=== PATIENT | male | born 1990 | race Caucasian/White ===

== ENCOUNTER 2016-11-23 12:07 | Emergency (ER) | payer OTHER ==
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
--- NOTE | 2016-11-23 14:08 | ED ORDER SUMMARY ---
..... Patient: GLENN BLACK OrderSheet [facility] VisitID: [id number] [place] [address] 26y, M Registration Date/Time: 11/23/2016 ORDER SHEET Weight: 92.0 kg (stated) Allergies: No Known Drug Allergy GENERAL ORDERS: Hand 3 or 4V Left Urgent (12:54 11/23/2016 Veto Dash) (Ack 13:01 LTapper) (13:09 Shamika HerediaNAmena) Hand 3 or 4V Right Urgent (12:54 11/23/2016 Veto Dash) (Susan 13:01 LTapper) (13:09 Shamika Gary) Splint (UE) (Left, Right) (Ulnar Gutter) (Short Arm) (14:14 11/23/2016 Alejandra verbal order read back to Veto Dash) (14:15 Alejandra) MEDICATION ORDERS: Motrin PO 800 mg (NOW) (12:54 11/23/2016 Veto Dash) (12:58 Azalia Gary) IV FLUIDS: ORDER SHEET NOTES: [Electronically signed by Carroll Kaminski Dr. (14:13 11/23/2016)] [Electronically signed by Michael Wen R.N. (14:53 11/23/2016)] [Electronically locked/signed by Michael Wen R.N. (14:53 11/23/2016)]
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
--- NOTE | 2016-11-23 14:08 | ED ORDER SUMMARY ---
..... Patient: GLENN BLACK OrderSheet [facility] VisitID: [id number] [place] [address] 26y, M Registration Date/Time: 11/23/2016 ORDER SHEET Weight: 92.0 kg (stated) Allergies: No Known Drug Allergy GENERAL ORDERS: Hand 3 or 4V Left Urgent (12:54 11/23/2016 Veto Dash) (Ack 13:01 LTapper) (13:09 Shamika HerediaNAmena) Hand 3 or 4V Right Urgent (12:54 11/23/2016 Veto Dash) (Susan 13:01 LTapper) (13:09 Shamika Gary) Splint (UE) (Left, Right) (Ulnar Gutter) (Short Arm) (14:14 11/23/2016 Alejandra verbal order read back to Veto Dash) (14:15 Alejandra) MEDICATION ORDERS: Motrin PO 800 mg (NOW) (12:54 11/23/2016 Veto Dash) (12:58 Azalia Gary) IV FLUIDS: ORDER SHEET NOTES: [Electronically signed by Carroll Kaminski Dr. (14:13 11/23/2016)] [Electronically signed by Michael Wen R.N. (14:53 11/23/2016)] [Electronically locked/signed by Michael Wen R.N. (14:53 11/23/2016)]
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
--- NOTE | 2016-11-23 14:54 | ED MAR SUMMARY ---
..... Medication Administration Record [address] [place] [address] Patient: GLENN BLACK Visit ID: [id number] 26y, M Weight: 92.0 kg Height/Length: 74 in BMI: 26.1 ALLERGIES: No Known Drug Allergy Given 12:48 11/23/2016 Michael Wen R.N. Medication Administered: MOTRIN [PO], Dose: 800 mg Tablets PO. Medication Ordered: Motrin PO 800 mg (NOW).
--- NOTE | 2016-11-23 14:54 | ED MED RECONCILIATION SUMMARY ---
Patient: GLENN BLACK Medication Reconciliation Report [facility] VisitID: [id number] [address] [place] [address] 26y, M Registration Date/Time: 11/23/2016 Weight: 92.0 kg Height/Length: 74 in. BMI: 26.1 ALLERGIES: No Known Drug Allergy The patient's Home Medications are listed below: NONE. The source(s) of the original Home Medication information: patient The following Medications were given to the patient in the Emergency Department: Motrin [PO] PO 800 mg, administered: 11/23/2016 12:48:00 PM The following Medications were prescribed to the patient: Hydrocodone/APAP 5mg / 325mg: take 1 orally every 6 hours as needed for pain. Dispense fifteen (15). No refill. -- Carroll Kaminski Dr. Diclofenac 50 mg tablets: take 1 tablet orally every 8 hours as needed for pain or stiffness. Dispense thirty (30). No refill. -- Carroll Kaminski Dr.
--- NOTE | 2016-11-23 14:54 | ED MED RECONCILIATION SUMMARY ---
Patient: GLENN BLACK Medication Reconciliation Report [facility] VisitID: [id number] [address] [place] [address] 26y, M Registration Date/Time: 11/23/2016 Weight: 92.0 kg Height/Length: 74 in. BMI: 26.1 ALLERGIES: No Known Drug Allergy The patient's Home Medications are listed below: NONE. The source(s) of the original Home Medication information: patient The following Medications were given to the patient in the Emergency Department: Motrin [PO] PO 800 mg, administered: 11/23/2016 12:48:00 PM The following Medications were prescribed to the patient: Hydrocodone/APAP 5mg / 325mg: take 1 orally every 6 hours as needed for pain. Dispense fifteen (15). No refill. -- Carroll Kaminski Dr. Diclofenac 50 mg tablets: take 1 tablet orally every 8 hours as needed for pain or stiffness. Dispense thirty (30). No refill. -- Carroll Kaminski Dr.
--- NOTE | 2016-11-23 14:54 | ED MAR SUMMARY ---
..... Medication Administration Record [facility] [address] [place] [address] Patient: GLENN BLACK Visit ID: [id number] 26y, M Weight: 92.0 kg Height/Length: 74 in BMI: 26.1 ALLERGIES: No Known Drug Allergy Given 12:48 11/23/2016 Michael Wen R.N. Medication Administered: MOTRIN [PO], Dose: 800 mg Tablets PO. Medication Ordered: Motrin PO 800 mg (NOW).
--- NOTE | 2016-11-23 14:54 | ED DISCHARGE INSTRUCTIONS ---
Patient: GLENN BLACK General Instructions [facility] VisitID: [id number] [address], [place] [address] 26y, M Registration Date/Time: 11/23/2016 Closed displaced and moderately angulated fracture of the neck of the fifth metacarpal of the left hand. Closed displaced and moderately angulated fracture of the shaft of the fourth metacarpal and shaft of the fifth metacarpal of the right hand. INSTRUCTIONS Wear fiberglass splint until released. Limit use of your right and left hand until released. Prescription Medications: Hydrocodone/APAP 5mg / 325mg: take 1 orally every 6 hours as needed for pain. Dispense fifteen (15). No refill. Diclofenac 50 mg tablets: take 1 tablet orally every 8 hours as needed for pain or stiffness. Dispense thirty (30). No refill. Follow-up with: [facility], , [address], [place], [id number] Follow up in about three days. Call for an appointment. ADDITIONAL INFORMATION Boxer Fracture You have a fracture (break) of one of the bones in your hand. This causes pain, swelling and sometimes bruising. This injury is treated with a splint or cast. It takes about 4-6 weeks to heal. Surgery may be needed for severe injuries. After the bone has healed, it is common for one knuckle to be slightly lower than the others, even if the bone was "set". This may be seen only when you make a fist and will not affect hand function. Home Care: 1) Keep your arm elevated to reduce pain and swelling. When sitting or lying down elevate your arm above the level of your heart. You can do this by placing your arm on a pillow that rests on your chest or on a pillow at your side. This is most important during the first 48 hours after injury. 2) Apply an ice pack (ice cubes in a plastic bag, wrapped in a towel) over the injured area for 20 minutes every 1-2 hours the first day. You can place the ice pack inside the sling and directly over the splint/cast. Continue with ice packs 3-4 times a day for the next two days, then as needed for the relief of pain and swelling. 3) Keep the cast/splint completely dry at all times. Bathe with your cast/splint out of the water, protected with a large plastic bag, rubber-banded at the top end. If a fiberglass cast/splint gets wet, you can dry it with a hair-dryer. 4) You may use acetaminophen (Tylenol) or ibuprofen (Motrin, Advil) to control pain, unless another pain medicine was prescribed. [ NOTE : If you have chronic liver or kidney disease or ever had a stomach ulcer or GI bleeding, talk with your doctor before using these medicines.] 5) If you cut, punctured or scraped your hand during this injury, there is a risk of infection. Watch for signs of infection listed below. Finish any antibiotics prescribed. Follow Up With Your Doctor Within One Week To Be Sure The Bone Is Healing Properly, Or As Advised By Our Staff. [NOTE: A radiologist will review any X-rays that were taken. We will notify you of any new findings that may affect your care.] Get Prompt Medical Attention If Any Of The Following Occur: The cast or splint becomes wet or soft Increased tightness or pain under the cast or splint Fingers become swollen, cold, blue, numb or tingly Bad odor from the splint/cast or you see wound fluid staining the cast Signs of infection: Fever, redness, warmth, swelling or drainage from the wound Fever of 100.4F (38C) or higher, or as directed by your healthcare provider Splint Care, Fiberglass The following will help you care for your splint: It will take up totwo hours for your fiber glass splint to fully harden; therefore, do notapply any pressure on it during that time or else it may break. To prevent swelling under the splint, for thefirst 48 hours: If the splint is on yourarm, keep it in a sling or raised to shoulder level when sitting or standing; rest it on your chest or on a pillow at your side when lying down. If the splint is on yourfoot, keep it propped up above the level of your waist when sitting or lying. Avoid crutch walking as much as possible during this time. Keep the splint/cast dry at all times. Bathe with your splint/cast well out of the water, protected with a large plastic bag, rubber-banded at the top end. If a fiberglass cast or splint gets wet, you can dry it with a hair-dryer. Follow-up care Follow up with your doctor or this facility as advised. When to seek medical care Get prompt medical attention if any of the following occur: Bad odor from the splint or wound-fluid stains the splint The splint cracks or remains wet over 24 hours Increasing tightness or pressure under the splint Fingers or toes become swollen, cold, blue, numb or tingly Increased pain under the splint Hydrocodone Bitartrate, Acetaminophen Oral tablet What is this medicine? ACETAMINOPHEN; HYDROCODONE (a set a KWAN keerthi fen; shiraz droe KOE done) is a pain reliever. It is used to treat mild to moderate pain. How should I use this medicine? Take this medicine by mouth. Swallow it with a full glass of water. Follow the directions on the prescription label. If the medicine upsets your stomach, take the medicine with food or milk. Do not take more than you are told to take. Talk to your hot cell technician regarding the use of this medicine in children. This medicine is not approved for use in children. What side effects may I notice from receiving this medicine? Side effects that you should report to your doctor or health caretaker grounds as soon as possible: allergic reactions like skin rash, itching or hives, swelling of the face, lips, or tongue breathing problems confusion feeling faint or lightheaded, falls stomach pain yellowing of the eyes or skin Side effects that usually do not require medical attention (report to your doctor or health caretaker grounds if they continue or are bothersome): nausea, vomiting stomach upset What may interact with this medicine? alcohol antihistamines isoniazid medicines for depression, anxiety, or psychotic disturbances medicines for sleep muscle relaxants naltrexone narcotic medicines (opiates) for pain phenobarbital ritonavir tramadol What if I miss a dose? If you miss a dose, take it as soon as you can. If it is almost time for your next dose, take only that dose. Do not take double or extra doses. Where should I keep my medicine? Keep out of the reach of children. This medicine can be abused. Keep your medicine in a safe place to protect it from theft. Do not share this medicine with anyone. Selling or giving away this medicine is dangerous and against the law. Store at room temperature between 15 and 30 degrees C (59 and 86 degrees F). Protect from light. Keep container tightly closed. Throw away any unused medicine after the expiration date. Discard unused medicine and used packaging carefully. Pets and children can be harmed if they find used or lost packages. What should I tell my health care provider before I take this medicine? They need to know if you have any of these conditions: brain tumor Crohn's disease, inflammatory bowel disease, or ulcerative colitis drink more than 3 alcohol-containing drinks per day drug abuse or addiction head injury heart or circulation problems kidney disease or problems going to the bathroom liver disease lung disease, asthma, or breathing problems an unusual or allergic reaction to acetaminophen, hydrocodone, other opioid analgesics, other medicines, foods, dyes, or preservatives or trying to get breast-feeding What should I watch for while using this medicine? Tell your doctor or health caretaker grounds if your pain does not go away, if it gets worse, or if you have new or a different type of pain. You may develop tolerance to the medicine. Tolerance means that you will need a higher dose of the medicine for pain relief. Tolerance is normal and is expected if you take the medicine for a long time. Do not suddenly stop taking your medicine because you may develop a severe reaction. Your body becomes used to the medicine. This does NOT mean you are addicted. Addiction is a behavior related to getting and using a drug for a non-medical reason. If you have pain, you have a medical reason to take pain medicine. Your doctor will tell you how much medicine to take. If your doctor wants you to stop the medicine, the dose will be slowly lowered over time to avoid any side effects. You may get drowsy or dizzy when you first start taking the medicine or change doses. Do not drive, use machinery, or do anything that may be dangerous until you know how the medicine affects you. Stand or sit up slowly. There are different types of narcotic medicines (opiates) for pain. If you take more than one type at the same time, you may have more side effects. Give your health care provider a list of all medicines you use. Your doctor will tell you how much medicine to take. Do not take more medicine than directed. Call emergency for help if you have problems breathing. The medicine will cause constipation. Try to have a bowel movement at least every 2 to 3 days. If you do not have a bowel movement for 3 days, call your doctor or health caretaker grounds. Too much acetaminophen can be very dangerous. Do not take Tylenol (acetaminophen) or medicines that contain acetaminophen with this medicine. Many non-prescription medicines contain acetaminophen. Always read the labels carefully. You have been given the following additional information: Fracture, Boxer's Splint Care, Fiberglass Hydrocodone Bitartrate, Acetaminophen Oral tablet Limit use of your right and left hand until released. (Electronically signed by Carroll Kaminski Dr. 11/23/2016 14:13)
--- NOTE | 2016-11-23 14:54 | ED DISCHARGE INSTRUCTIONS ---
Patient: GLENN BLACK General Instructions [facility] VisitID: [id number] [address], [place] [address] 26y, M Registration Date/Time: 11/23/2016 Closed displaced and moderately angulated fracture of the neck of the fifth metacarpal of the left hand. Closed displaced and moderately angulated fracture of the shaft of the fourth metacarpal and shaft of the fifth metacarpal of the right hand. INSTRUCTIONS Wear fiberglass splint until released. Limit use of your right and left hand until released. Prescription Medications: Hydrocodone/APAP 5mg / 325mg: take 1 orally every 6 hours as needed for pain. Dispense fifteen (15). No refill. Diclofenac 50 mg tablets: take 1 tablet orally every 8 hours as needed for pain or stiffness. Dispense thirty (30). No refill. Follow-up with: [facility], , [address], [place], [id number] Follow up in about three days. Call for an appointment. ADDITIONAL INFORMATION Boxer Fracture You have a fracture (break) of one of the bones in your hand. This causes pain, swelling and sometimes bruising. This injury is treated with a splint or cast. It takes about 4-6 weeks to heal. Surgery may be needed for severe injuries. After the bone has healed, it is common for one knuckle to be slightly lower than the others, even if the bone was "set". This may be seen only when you make a fist and will not affect hand function. Home Care: 1) Keep your arm elevated to reduce pain and swelling. When sitting or lying down elevate your arm above the level of your heart. You can do this by placing your arm on a pillow that rests on your chest or on a pillow at your side. This is most important during the first 48 hours after injury. 2) Apply an ice pack (ice cubes in a plastic bag, wrapped in a towel) over the injured area for 20 minutes every 1-2 hours the first day. You can place the ice pack inside the sling and directly over the splint/cast. Continue with ice packs 3-4 times a day for the next two days, then as needed for the relief of pain and swelling. 3) Keep the cast/splint completely dry at all times. Bathe with your cast/splint out of the water, protected with a large plastic bag, rubber-banded at the top end. If a fiberglass cast/splint gets wet, you can dry it with a hair-dryer. 4) You may use acetaminophen (Tylenol) or ibuprofen (Motrin, Advil) to control pain, unless another pain medicine was prescribed. [ NOTE : If you have chronic liver or kidney disease or ever had a stomach ulcer or GI bleeding, talk with your doctor before using these medicines.] 5) If you cut, punctured or scraped your hand during this injury, there is a risk of infection. Watch for signs of infection listed below. Finish any antibiotics prescribed. Follow Up With Your Doctor Within One Week To Be Sure The Bone Is Healing Properly, Or As Advised By Our Staff. [NOTE: A radiologist will review any X-rays that were taken. We will notify you of any new findings that may affect your care.] Get Prompt Medical Attention If Any Of The Following Occur: The cast or splint becomes wet or soft Increased tightness or pain under the cast or splint Fingers become swollen, cold, blue, numb or tingly Bad odor from the splint/cast or you see wound fluid staining the cast Signs of infection: Fever, redness, warmth, swelling or drainage from the wound Fever of 100.4F (38C) or higher, or as directed by your healthcare provider Splint Care, Fiberglass The following will help you care for your splint: It will take up totwo hours for your fiber glass splint to fully harden; therefore, do notapply any pressure on it during that time or else it may break. To prevent swelling under the splint, for thefirst 48 hours: If the splint is on yourarm, keep it in a sling or raised to shoulder level when sitting or standing; rest it on your chest or on a pillow at your side when lying down. If the splint is on yourfoot, keep it propped up above the level of your waist when sitting or lying. Avoid crutch walking as much as possible during this time. Keep the splint/cast dry at all times. Bathe with your splint/cast well out of the water, protected with a large plastic bag, rubber-banded at the top end. If a fiberglass cast or splint gets wet, you can dry it with a hair-dryer. Follow-up care Follow up with your doctor or this facility as advised. When to seek medical care Get prompt medical attention if any of the following occur: Bad odor from the splint or wound-fluid stains the splint The splint cracks or remains wet over 24 hours Increasing tightness or pressure under the splint Fingers or toes become swollen, cold, blue, numb or tingly Increased pain under the splint Hydrocodone Bitartrate, Acetaminophen Oral tablet What is this medicine? ACETAMINOPHEN; HYDROCODONE (a set a KWAN keerthi fen; shiraz droe KOE done) is a pain reliever. It is used to treat mild to moderate pain. How should I use this medicine? Take this medicine by mouth. Swallow it with a full glass of water. Follow the directions on the prescription label. If the medicine upsets your stomach, take the medicine with food or milk. Do not take more than you are told to take. Talk to your track laying supervisor regarding the use of this medicine in children. This medicine is not approved for use in children. What side effects may I notice from receiving this medicine? Side effects that you should report to your doctor or health child care director as soon as possible: allergic reactions like skin rash, itching or hives, swelling of the face, lips, or tongue breathing problems confusion feeling faint or lightheaded, falls stomach pain yellowing of the eyes or skin Side effects that usually do not require medical attention (report to your doctor or health child care director if they continue or are bothersome): nausea, vomiting stomach upset What may interact with this medicine? alcohol antihistamines isoniazid medicines for depression, anxiety, or psychotic disturbances medicines for sleep muscle relaxants naltrexone narcotic medicines (opiates) for pain phenobarbital ritonavir tramadol What if I miss a dose? If you miss a dose, take it as soon as you can. If it is almost time for your next dose, take only that dose. Do not take double or extra doses. Where should I keep my medicine? Keep out of the reach of children. This medicine can be abused. Keep your medicine in a safe place to protect it from theft. Do not share this medicine with anyone. Selling or giving away this medicine is dangerous and against the law. Store at room temperature between 15 and 30 degrees C (59 and 86 degrees F). Protect from light. Keep container tightly closed. Throw away any unused medicine after the expiration date. Discard unused medicine and used packaging carefully. Pets and children can be harmed if they find used or lost packages. What should I tell my health care provider before I take this medicine? They need to know if you have any of these conditions: brain tumor Crohn's disease, inflammatory bowel disease, or ulcerative colitis drink more than 3 alcohol-containing drinks per day drug abuse or addiction head injury heart or circulation problems kidney disease or problems going to the bathroom liver disease lung disease, asthma, or breathing problems an unusual or allergic reaction to acetaminophen, hydrocodone, other opioid analgesics, other medicines, foods, dyes, or preservatives or trying to get breast-feeding What should I watch for while using this medicine? Tell your doctor or health child care director if your pain does not go away, if it gets worse, or if you have new or a different type of pain. You may develop tolerance to the medicine. Tolerance means that you will need a higher dose of the medicine for pain relief. Tolerance is normal and is expected if you take the medicine for a long time. Do not suddenly stop taking your medicine because you may develop a severe reaction. Your body becomes used to the medicine. This does NOT mean you are addicted. Addiction is a behavior related to getting and using a drug for a non-medical reason. If you have pain, you have a medical reason to take pain medicine. Your doctor will tell you how much medicine to take. If your doctor wants you to stop the medicine, the dose will be slowly lowered over time to avoid any side effects. You may get drowsy or dizzy when you first start taking the medicine or change doses. Do not drive, use machinery, or do anything that may be dangerous until you know how the medicine affects you. Stand or sit up slowly. There are different types of narcotic medicines (opiates) for pain. If you take more than one type at the same time, you may have more side effects. Give your health care provider a list of all medicines you use. Your doctor will tell you how much medicine to take. Do not take more medicine than directed. Call emergency for help if you have problems breathing. The medicine will cause constipation. Try to have a bowel movement at least every 2 to 3 days. If you do not have a bowel movement for 3 days, call your doctor or health child care director. Too much acetaminophen can be very dangerous. Do not take Tylenol (acetaminophen) or medicines that contain acetaminophen with this medicine. Many non-prescription medicines contain acetaminophen. Always read the labels carefully. You have been given the following additional information: Fracture, Boxer's Splint Care, Fiberglass Hydrocodone Bitartrate, Acetaminophen Oral tablet Limit use of your right and left hand until released. (Electronically signed by Carroll Kaminski Dr. 11/23/2016 14:13)
== END 2016-11-23 14:15 | disposition home or self-care (01) ==
LOC: ED SRH 12:07
DX: S62.336A Displaced fracture of neck of fifth metacarpal bone, right hand, initial encounter for closed fracture (principal); S62.325A Displaced fracture of shaft of fourth metacarpal bone, left hand, initial encounter for closed fracture; S62.326A Displaced fracture of shaft of fifth metacarpal bone, right hand, initial encounter for closed fracture; W22.09XA Striking against other stationary object, initial encounter; Y93.89 Activity, other specified; Y92.511 Restaurant or cafe as the place of occurrence of the external cause; Y99.9 Unspecified external cause status; Z87.891 Personal history of nicotine dependence